=== PATIENT | female | born 1995 | race Caucasian/White ===

== ENCOUNTER → 2020-05-14 10:27 | Outpatient (BNVA) | payer BC, SELFPAY | PROVIDERS: Family Provider Family Medicine; PCP Family Medicine; Visit Provider Nurse Practitioner Family | DX: R53.83 Other fatigue (principal); R22.43 Localized swelling, mass and lump, lower limb, bilateral; T14.8XXA Other injury of unspecified body region, initial encounter | CPT/HCPCS: 80053; 84443; 85025 ==

== ENCOUNTER 2020-06-04 08:24 | Outpatient (CLI) | payer BC, SELFPAY ==
--- NOTE | 2020-06-04 08:39 | USCV_ITS ---
Melva Munoz Age: 24 Gender: F : 1995 Exam Date: 06/04/2020 08:41 Ordering Phys: Jhaaira Barrera-Avel PROPELLER INSPECTOR Technologist: Raquel Pham [place] [facility] [place]: ble pain and swelling Risk Factors: Previous Vascular Surgery: RIGHT LEFT BP: 117.0 / 66.00 BP: 109.0/ 76.00 0 0 Waveform Velocity (cm/s) Velocity (cm/s) Waveform Triphasic 162.7 Iliac Prox 167.2 Triphasic Triphasic 175.7 Iliac Mid 188.4 Triphasic Triphasic 177.6 Iliac Distal 161.2 Triphasic Triphasic 145.7 CERTIFIED SKI PATROLLER 159.6 Triphasic Triphasic 109.2 SFA Prox 114.9 Triphasic Triphasic 107.2 SFA Mid 116.4 Triphasic Triphasic SFA Dist Triphasic 89.5 86.3 Triphasic 56.4 POP 65.1 Triphasic Triphasic 45.8 OVERLOCK OPERATOR 69.2 Triphasic Biphasic 32.0 DPA 52.1 Triphasic 0.9 [id number] 1.3 FINDINGS RIGHT DP- 106 RIGHT OVERLOCK OPERATOR- 94 LEFT DPA- 124 LT OVERLOCK OPERATOR- 150 Normal resting ABIs bilaterally Normal arterial Doppler waveforms CONCLUSIONS No significant arterial obstruction, based on the above findings Dr Tony Chopra MD [facility] (Electronically Signed) Final Date: 04 June 2020 20:41 S
== END 2020-06-04 08:25 | disposition home or self-care (01) ==
PROVIDERS: Visit Provider Nurse Practitioner Family
DX: M79.604 Pain in right leg (principal); M79.605 Pain in left leg; M79.89 Other specified soft tissue disorders
CPT/HCPCS: 93925

== ENCOUNTER 2020-09-20 09:14 | Outpatient (CLI) | payer BC, SELFPAY ==
--- NOTE | 2020-09-20 09:30 | USCV_ITS ---
Melva Munoz Age: 24 Gender: F : 1995 Exam Date: 09/20/2020 09:26 Ordering Phys: Kenyon Mcdowell MD (Andy) ([email or web address]) Technologist: Sammi Churchill [place] [facility] [place]ication: HISTORY: Patient has history of varicose veins. PROCEDURES: Bilateral duplex Venous Insufficiency study of the Deep and Superficial systems was carried out according to normal protocol with the patient in supine positon for deep system and dependent position for the superficial system. FINDINGS: There is no evidence of bilateral deep vein thrombosis. No evidence of reflux was noted in the bilateral deep venous system. No evidence of superficial thrombosis in the RIGHT saphenous system. No venous reflux noted in the RIGHT greater saphenous vein. Venous reflux is demonstrated in the RIGHT small saphenous vein with a spectral Doppler display of greater than 500 mlsec at the level of the proximal and mid calf. No evidence of superficial thrombosis in the LEFT saphenous system. Venous reflux is demonstrated in the LEFT greater saphenous vein with a spectral Doppler display of greater than 500 milliseconds at the distal and below the knee levels There is a accessory vein in the left extremity coming from the SFJ that demonstrates reflux. this vein is very tortuous. Venous reflux is demonstrated in the LEFT small saphenous vein with a spectral Doppler display of greater than 500 mlsec at the level of the proximal calf. CONCLUSIONS 1.No evidence of DVT in the above-mentioned identifiable veins. 2. On the right side, significant venous reflux of greater than 500 ms (639 and 811 ms respectively )was noted at the proximal and mid small diameter and were greater than 1 cm deep from the surface. 3. On the left side, significant venous reflux of greater than 500 ms ( 2890 and 2800 msec respectively) were noted at the distal and below- knee segments of the greater saphenous vein. These venous segments were 0.78 and 0.39 cm in diameter and at a depth of more than 1 cm from the surface. 4. Accessory veins are noted with a significant insufficiency at the below-knee level on the left side Dr Tony Chopra MD [facility] (Electronically Signed) Final Date: 20 September 2020 17:09 S
== END 2020-09-20 09:15 | disposition home or self-care (01) ==
LOC: RAD 09:17
PROVIDERS: Visit Provider Thoracic Surgery (Cardiothoracic Vascular Surgery)
DX: I83.90 Asymptomatic varicose veins of unspecified lower extremity (principal)
CPT/HCPCS: 93970

== ENCOUNTER → 2021-03-19 09:25 | Outpatient (BNVA) | payer BC, SELFPAY | PROVIDERS: Visit Provider Thoracic Surgery (Cardiothoracic Vascular Surgery) | DX: Z20.822 Contact with and (suspected) exposure to COVID-19 (principal); I83.90 Asymptomatic varicose veins of unspecified lower extremity | CPT/HCPCS: 87635 ==

== ENCOUNTER → 2021-03-24 | Day surgery (SDC) | payer BC, SELFPAY ==
[2021-03-24 06:06] VITALS: BMI 33.0
[2021-03-24 06:20] VITALS: BP 103/69; PULSE 50; RESP 18; TEMP 36.7; O2SAT 100
--- NOTE | 2021-03-24 06:24 | PM.HP ---
Providers/Chief Complaint Admitting Physician: Dr. Mcdowell Primary Care Provider: Ms. Jahaira Barrera Chief Complaint: venous ablation History of Present Illness Melva Munoz is a 25 year old female whom I have seen previously upon referral from . Jahaira Barrera for bilateral lower extremity discomfort with prolonged standing, left greater than right. I initially saw her in consultation on August 29 I recommended transition from knee-high compression to thigh-high compression. Venous reflux studies have confirmed bilateral greater saphenous vein reflux. She is substantially more symptomatic on the left side than the right side. She did note improvement with compressive therapy. 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 Due to the substantial discomfort with this prolonged standing related to her work, we have offered consideration for venous ablative therapy to assist with her discomfort. She is in agreement. Given that her symptoms are greater on the left side, we initially recommended therapy on that side. Review of Systems Const: Reports: fatigue and change in sleep pattern; Denies: fever(s), chills, change in appetite, change in weight or night sweats Eyes: Denies: change in vision or blurry vision ENMT: Denies: odynophagia or hoarseness Card: Reports: swelling of feet/ankles; Denies: chest pain, palpitations, irregular heart rhythm or edema Resp: Denies: dyspnea or productive cough GI: Denies: abdominal pain, nausea, vomiting, dysphagia, heartburn or change in bowel habits : Denies: dysuria, urinary frequency, urinary urgency or urinary hesitancy Musc: Reports: extremity pain and extremity swelling Skin/Breast: Denies: rash Neuro: Denies: headache(s), numbness in extremities, weakness in extremities or sensory changes Psych: Reports: depression; Denies: anxiety or change in appetite Endo: Denies: polyuria, polydipsia or cold intolerance Yovani/Lymph: Reports: easy bruising; Denies: easy bleeding, petechiae or enlarged lymph nodes Medications/Allergies Home Medications Medication Instructions Recorded Confirmed Last Taken Type No Known Home Medications 05/14/20 01/03/21 Unknown History Allergies Allergy/AdvReac Type Severity Reaction Status Date / Time erythromycin base Allergy unsure Verified 01/03/21 10:49 steroid Allergy swelling Uncoded 01/03/21 10:49 PFSH Acute PFSH: Medical History (Updated 03/24/21 @ 06:28 by Kenyon Mcdowell MD) Chronic ITP (idiopathic thrombocytopenia) DDD (degenerative disc disease), lumbar 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 Family History Mother Diabetes Hypothyroidism Social History Smoking and tobacco status: never smoked Alcohol intake: current Alcohol intake frequency: holidays/special occasions only Household members: significant other Housing: House Marital status: Single Number of children: 0 Female Reproductive History: Date of last menstrual period: 05/01/20 Para: 0 Spontaneous abortions: No Physical Exam Const: COMMON NORMALS: patient oriented x3 and alert ORIENTATION/CONSCIOUSNESS: Yes oriented to person, Yes oriented to place and Yes oriented to time HENMT: COMMON NORMALS: normocephalic HEAD & SCALP: normocephalic and cranial bruits Neck/C-Spine: COMMON NORMALS: full ROM, supple, no JVD and No carotid bruits GENERAL: Yes trachea midline CERVICAL SPINE: Yes cervical ROM normal Chest: COMMONS NORMALS: normal inspection of the chest and normal palpation of entire chest wall Resp: COMMON NORMALS: normal respiratory effort, No use of accessory muscles, clear to auscultation bilaterally and percussion normal EFFORT & INSPECTION: Yes able to speak in complete sentences and Yes symmetric chest movement AUSCULTATION: clear to auscultation bilaterally PERCUSSION: percussion normal Cardio: COMMON NORMALS: no JVD, regular rate, regular rhythm, S1 normal heart sound present, S2 normal heart sound present, No gallops present (Cardio), No murmurs present (Cardio), No rub (Cardio) and Peripheral pulses 2+ throughout JUGULAR VENOUS DISTENTION: no JVD RATE: regular rate RHYTHM: regular rhythm HEART SOUNDS: S1 normal heart sound present and S2 normal heart sound present PERIPHERAL PULSES: Peripheral pulses 2+ throughout Extremity: COMMON NORMALS: capillary refill normal GENERAL: No calf tenderness, No cyanosis, Yes edema and No palpable cord OTHER: Negative Homans' sign Neuro: COMMON NORMALS: patient oriented x3, no focal motor deficits and no sensory deficits noted SENSORIUM/ORIENTATION: Yes alert, Yes oriented to person, Yes oriented to place and Yes oriented to time GAIT: Yes Normal gait present A&P Assessment and plan (1) 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 Symptom improvement with compressive therapy. We have recommended consideration for staged RF catheter ablation of the greater saphenous vein, initially beginning on the left side. Rationale for this was carefully discussed with Magdalene Tammy. Potential for DVT or failure of improvement was very frankly discussed. She stated understanding. Potential for infection, continued leg swelling, increased pain, and need for further procedures were also frankly discussed. Potential need for lifelong compressive therapy for further relief of symptoms was also reviewed. Appropriate consents have been reviewed and signed for planned RF catheter ablation of the left greater saphenous vein. Status: Acute Attestations Medical Necessity Statement*: Bilateral lower extremity edema and pain with prolonged standing with documented bilateral lower extremity venous reflux of the greater saphenous veins. More symptomatic on the left than right. 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
[2021-03-24] MEDS: diazePAM 5 mg Tablet 10 MG PO (06:28)
[2021-03-24 07:30] VITALS: BP 115/69; PULSE 53; RESP 20; O2SAT 100
--- NOTE | 2021-03-24 07:31 | PC.NURSE ---
Dr. Kapoor ordered to stop procedure and reschedule due to difficult access and vasospasm. Patient to be rescheduled at later date and time. V/s stable, boat driver available . Patient updated on plan and verbalized understanding.
--- NOTE | 2021-03-24 07:44 | PM.OP ---
Operative Report Date of procedure: March 24, 2021 Pre-op Diagnosis: Bilateral lower extremity venous reflux with symptomatic edema and pain Post-op diagnosis: same Procedure Done: Planned RF catheter ablation of left greater saphenous vein: Aborted secondary to anatomy Pathology: none sent Anesthesia: Local Findings: Ultrasound examination revealed vein spasm with engaged but a introducer needle which was not relieved with time or reverse Trendelenburg position. Condition: stable Disposition: same day Brief History: Ms. Munoz is a 25-year-old female who has bilateral lower extremity venous reflux and symptomatic lower extremity edema and discomfort with prolonged standing. 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 She is on some modest improvement with thigh-high compressive therapy. Given her symptoms and documented greater saphenous vein reflux, RF catheter ablation was recommended in an attempt to improve her symptomatology. Details the risk of the procedure were carefully and frankly discussed. Proper consents were reviewed and signed. Procedure: Ms. Munoz underwent preop repeat ultrasound examination of her left lower extremity confirming her anatomy. It was noted however that below the knee segment was felt to be too small for ablative therapy as well as quite superficial. We also note there several accessory veins entering the saphenous system at the knee level. Entire left lower extremity was sterilely prepped and draped. 1% lidocaine was infiltrated at a point just proximal to the knee crease medially. Saphenous vein was engaged under ultrasound guidance at this level where there was immediate severe spasm that would not allow for passage of our guidewire. Repeat inspection of the saphenous system proximally revealed substantial detriment in vein caliber consistent with spasm throughout. The vein is quite deep in the mid thigh and I did not feel I would be successful with engaging it at its current caliber and depth. We waited several minutes and placed her in extreme reverse Trendelenburg, though unfortunately, the saphenous vein never returned to its preengagement caliber. At this point, I do not feel we would be successful with engagement, and if so, given the current vein caliber, I did not feel we be able to successfully pass an RF catheter. Therefore, I elected to abort the procedure at this time. We will have her return in approximately 1 week after hydration to allow for reexamination by our current physician relations representative to determine whether the caliber at that time would warrant consideration for repeat attempt at RF catheter ablation. This was carefully discussed with Ms. Munoz, and she stated understanding. In the interim, recommend she continue to wear thigh-high compressive garments for symptomatic relief.
== END ==
PROVIDERS: Visit Provider Thoracic Surgery (Cardiothoracic Vascular Surgery)
DX: I83.899 Varicose veins of unspecified lower extremity with other complications (principal)
CPT/HCPCS: J7040; J7050

== ENCOUNTER 2021-03-31 16:00 | Outpatient (CLI) | payer BC, SELFPAY ==
--- NOTE | 2021-03-31 | USCV_ITS ---
Melva Munoz Age: 25 Gender: F : 1995 Exam Date: 03/31/2021 16:22 Ordering Phys: Kenyon Mcdowell MD (Andy) ([email or web address]) Technologist: Exam Location: [facility] – [place] Indication: RECHECK LT GSAPH VEIN AFTER PREVIOUS FAILED ATTEMPT PROCEDURES: LIMITED VEIWS OF THE DEEP AND GASPH VEIN ON LT AFTER FAILED ABLATION ATEMPT FINDINGS: THE DISTAL GREAT SAPH ABOVE THE KNEE ON LT WOULD BE A GOOD ACCCESS SITE, BELOW THE KNEE THE VEIN IS DEEP AND SMALL ON THE LT LEG CONCLUSIONS 1. No significant venous reflux in the deep veins in the left side 2. Significant venous reflux of greater than 500 ms were noted at the saphenofemoral junction, distal greater saphenous vein segment and the below-knee greater saphenous vein segment. The below-knee segment of the greater saphenous vein appears to be deep with superficial tributaries and communicators. The below- knee vein was found to be 0.34 cm in diameter 3. No DVT noted Dr Tony Chopra MD [facility] (Electronically Signed) Final Date: 02 April 2021 09:32 S
== END 2021-03-31 16:01 | disposition home or self-care (01) ==
LOC: RAD 16:02
PROVIDERS: Visit Provider Thoracic Surgery (Cardiothoracic Vascular Surgery)
DX: I83.90 Asymptomatic varicose veins of unspecified lower extremity (principal); I87.2 Venous insufficiency (chronic) (peripheral)
CPT/HCPCS: 93971

== ENCOUNTER 2022-08-25 08:58 | Outpatient (CLI) | payer BC, SELFPAY ==
--- NOTE | 2022-08-25 09:30 | USCV_ITS ---
Melva Munoz Age: 26 Gender: F : 1995 Exam Date: 08/25/2022 09:20 Ordering Phys: Kenyon Mcdowell MD (Andy) ([email or web address] [place]) Technologist: Monty Smith [place] [facility] [place] HISTORY: PROCEDURES: FINDINGS: No DVT or SVT noted in either bilateral lower extremity. There is no reflux noted in the right lower extremity. There is venous reflux noted in the LEFT SFJ, GSV-DIST, and the GSV below knee. All other veins examined appear free of reflux at this time. The veins were found to be easily compressible with spontaneous blood flow. Non pulsatile flow pattern. Significant venous reflux of greater than 500 ms. Noted at the saphenofemoral junction, proximal, mid, distal and below-knee segments of the greater saphenous vein on the left side. The reflux time was measuring anywhere from 694ms to 3570 ms. The venous segments was measuring away from 0.32 to 0.56 cm in diameter. All these venous segments where greater than 1 cm deep from the surface. No significant reflux in the small saphenous veins on the left side CONCLUSIONS 1. No evidence of DVT in the above-mentioned identifiable veins. 2. Significant venous reflux of greater than 500 ms were noted at the left saphenofemoral junction, proximal, mid, distal and below-knee segments of the great saphenous vein on the left side. These venous segments were greater than 1 cm deep from the surface. 3. No significant venous reflux in the right side Dr Tony Chopra MD [facility] (Electronically Signed) Final Date: 26 August 2022 18:50 S
== END 2022-08-25 08:59 | disposition home or self-care (01) ==
LOC: RAD 09:01
PROVIDERS: Visit Provider Thoracic Surgery (Cardiothoracic Vascular Surgery)
DX: I83.90 Asymptomatic varicose veins of unspecified lower extremity (principal); I87.2 Venous insufficiency (chronic) (peripheral)
CPT/HCPCS: 93970

== ENCOUNTER 2022-10-13 05:45 | Day surgery (SDC) | payer BC, SELFPAY ==
[2022-10-12 15:51] VITALS: BMI 33.0
[2022-10-13 06:13] VITALS: BP 129/72; PULSE 65; RESP 18; TEMP 37.2; O2SAT 99
[2022-10-13 06:17] LABS: OR HCG Qualitative Urine Negative (Negative)
[2022-10-13] MEDS: diazePAM 5 mg Tablet PO (06:57)
--- NOTE | 2022-10-13 06:58 | PM.OPSURHP ---
Providers/Chief Complaint Admitting Physician: Dr. Mcdowell Chief Complaint: 45869 I83.90 Venous reflux left greater saphenous vein History of Present Illness Melva Munoz is a 26 year old female with known left greater saphenous vein venous reflux. We attempted RF catheter ablation March 24, 2021 the right successful due to vessel spasm. She has been utilizing compression therapy at that time with reasonably good results. We felt at the time of her original procedure that she probably was not appropriately hydrated. She represented back to us in July wishing to be reconsidered for intervention. We therefore completed a new venous duplex study this year which again confirmed substantial reflux in the left greater saphenous system. There were no substantial reflux segments on the right side. She has been undergoing hydration orally for the past week and is avoided all caffeine products. She now represents for attempt at catheter ablation of the left greater saphenous vein to improve symptoms. CEAP classification C3 Review of Systems Const: Denies: fever(s), chills, change in appetite, change in weight, fatigue or night sweats Eyes: Denies: change in vision or blurry vision ENMT: Denies: odynophagia or hoarseness Card: Denies: chest pain, palpitations, irregular heart rhythm or edema Resp: Denies: dyspnea or productive cough GI: Denies: abdominal pain, nausea, vomiting, dysphagia, heartburn or change in bowel habits : Denies: dysuria, urinary frequency, urinary urgency or urinary hesitancy Musc: Reports: extremity pain (With prolonged standing) and extremity swelling (With prolonged standing) Skin/Breast: Denies: rash Neuro: Denies: headache(s), numbness in extremities, weakness in extremities or sensory changes Psych: Denies: anxiety, depression or change in appetite Endo: Denies: polyuria, polydipsia or cold intolerance Yovani/Lymph: Denies: easy bruising, easy bleeding, petechiae or enlarged lymph nodes Medications/Allergies Home Medications Medication Instructions Recorded Confirmed Last Taken Type No Known Home Medications 05/14/20 10/12/22 Unknown History Allergies Allergy/AdvReac Type Severity Reaction Status Date / Time erythromycin base Allergy unsure Verified 10/13/22 06:58 steroid Allergy swelling Uncoded 10/13/22 06:58 PFSH PFSH: Medical History Chronic ITP (idiopathic thrombocytopenia) DDD (degenerative disc disease), lumbar 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 Family History Mother Diabetes Hypothyroidism Social History Alcohol intake: current Alcohol intake frequency: holidays/special occasions only Substance/Drug Use: never Household members: significant other Housing: House Marital status: Single Number of children: 0 Female Reproductive History: Date of last menstrual period: 10/12/22 Para: 0 Spontaneous abortions: No Dietary Habits: Caffeine: Yes Vital Signs Vitals Signs: Last Vital Signs Temp 99.0 F 10/13/22 06:13 Pulse 65 10/13/22 06:13 Resp 18 10/13/22 06:13 BP 129/72 10/13/22 06:13 Pulse Ox 99 10/13/22 06:13 O2 Del Method Room Air 10/13/22 06:13 Weight: Weight last 48 hrs Weight 217 lb Weight 217 lb Physical Exam HENMT: COMMON NORMALS: normocephalic, atraumatic, hearing grossly normal bilaterally and external ears normal Neck/C-Spine: COMMON NORMALS: full ROM and no lymphadenopathy Resp: COMMON NORMALS: normal respiratory effort and clear to auscultation bilaterally Cardio: COMMON NORMALS: regular rate, regular rhythm, S1 normal heart sound present and No murmurs present (Cardio) Extremity: NARRATIVE EXTREMITY EXAM: Trace to 1+ pretibial edema on the left. No ulcerations or prominent varicosities when supine. Neuro: COMMON NORMALS: moves all extremities, no focal motor deficits and no sensory deficits noted A&P Assessment and plan (1) Saphenofemoral venous reflux: Venous reflux left greater saphenous vein system Plan: We will plan to proceed with attempt at RF catheter ablation of left greater saphenous vein. Details and risk of the procedure were carefully and frankly discussed. Appropriate consents have been reviewed and signed. She is aware of the potential, again, for failure to be able to complete the procedure. She is also aware of continued need for compression post procedure and of failure to improve symptoms. She wishes to proceed. Risk of infection, bleeding, hematoma, and postoperative pain were also discussed. Coding Level of Care Code Acute Code for g Fwd Diagnoses Saphenofemoral venous reflux I87.2
[2022-10-13 08:05] VITALS: BP 128/86; PULSE 82; RESP 17; TEMP 36.6; O2SAT 100
[2022-10-13] MEDS: lidocaine 2% INJ 20 mL 10 ML INJECTION (08:12)
--- NOTE | 2022-10-13 08:46 | SUR.OPER ---
0846 PT TAKEN TO PRE OP PER RUDI SEXTON, NO COMPLAINTS, REPORT GIVEN TO BONITA KILGORE.
[2022-10-13 08:47] VITALS: BP 134/68; PULSE 74; RESP 18; TEMP 36.7; O2SAT 96
--- NOTE | 2022-10-13 08:58 | P.OP_ITS ---
Operative Report Date of procedure: October 13, 2022 Pre-op diagnosis: Preop Diagnosis Bilateral lower extremity venous reflux with symptomatic edema and pain Post-op diagnosis: same Procedure done: Radiofrequency catheter ablation of the left greater saphenous vein Implants: None Specimens removed/disposition: None Pathology: none sent Surgeon: Kenyon Mcdowell Anesthesia: Local Estimated blood loss (mL): 5 Complications: None Condition: stable Disposition: same day Brief History: Ms. Case is a 26-year-old female with isolated substantial reflux of the left greater saphenous vein system. We previously attempted RF catheter ablation back in 2020 but were unsuccessful secondary to severe vein spasm. She was treated with compression and represented recently with desire to attempt ablation again. She has undergone duplex reexamination again confirming severe reflux on the left side and not on the right greater saphenous vein system. She underwent substantial hydration orally over the past week and avoided all caffeine products and then represents for attempt at ablation again. Details of risk the procedure were again carefully discussed including the potential for inability to complete the procedure. Proper consents have been reviewed and signed. Procedure: The insufficient left greater saphenous vein was verified by ultrasound and diagrammed on the overlying skin. The varicose tributary veins and suitable access sites were identified and mapped. The affected left lower extremity was prepped and draped in the usual sterile fashion. Ms. Munoz was placed in reverse Trendelenburg position. Tumescent was instilled in the skin overlying the access site for local anesthesia. The vein was accesse in the proximal left calf using ultrasound guidance and the Anupama bassem technique, a guidewire was introduced through the needle, which was then exchanged over the guidewire for a 7F sheath. The RF catheter was placed on the sterile field, flushed and wiped down, prepared, and connected by a sterile cable. The patient was placed in Trendelenburg position. After RF catheter position was verified by ultrasound, tumescent anesthesia was infiltrated, under ultrasound guidance, precisely into the perivenous compartment along the entire length of vein. After the RF catheter position was again confirmed with ultrasound imaging, and under direct external compression along the length of the heating element, RF energy was applied. The vein was segmentally ablated until the treatment length is completed. Device temperature was maintained at 120 +/- degrees C with an initial power level of 40W dropping to below 20W for each treatment. Total vein length treated 36 cm. Vein diameter 1.5 cm. Total cycles of RF 14. Time 4 minutes and 25 seconds. Repeat ultrasound of the left greater saphenous vein was performed, confirming successful treatment. Saphenofemoral junction was inspected and was noted to be patent along with a patent epigastric vessel. The catheter and sheath were withdrawn and hemostasis established with direct pressure. After assuring hemostasis, the skin incision over the saphenous vein was closed with a bandage and graduated compression stocking was applied from the level of the foot to the most proximal length of the thigh.
== END 2022-10-13 09:00 | disposition home or self-care (01) ==
PROVIDERS: Visit Provider Thoracic Surgery (Cardiothoracic Vascular Surgery)
DX: I83.892 Varicose veins of left lower extremity with other complications (principal); I87.2 Venous insufficiency (chronic) (peripheral)
CPT/HCPCS: 36475; 81025; 84703; C1887

== ENCOUNTER 2022-10-20 06:04 | Outpatient (CLI) | payer BC, SELFPAY ==
--- NOTE | 2022-10-20 06:15 | USCV_ITS ---
Melva Munoz Age: 26 Gender: F : 1995 Exam Date: 10/20/2022 06:17 Ordering Phys: Kenyon Mcdowell MD (Andy) ([email or web address] [place] Technologist: CT Exam [place]: [facility] [place]: post ablation left PROCEDURES: Venous duplex imaging was performed in only the left lower extremity. In addition, the posterior tibial and peroneal trunk were evaluated. On the left side, the common femoral, superficial femoral, profunda femoral, popliteal, posterior tibial, greater saphenous veins, and the peroneal trunk were identified and interrogated in the standard fashion. FINDINGS: There is no dvt, the venous ablation area in gsv is occluded up to the prx mid thigh area CONCLUSIONS No evidence of left lower extremity DVT. GSV ablation with occlusion to proximal mid thigh Ramses Smallwood MD (Electronically Signed) Final Date: 20 Oct 2022 09:32 S
== END 2022-10-20 06:05 | disposition home or self-care (01) ==
LOC: RAD 06:06
PROVIDERS: Visit Provider Thoracic Surgery (Cardiothoracic Vascular Surgery)
DX: I83.90 Asymptomatic varicose veins of unspecified lower extremity (principal)
CPT/HCPCS: 93971

== ENCOUNTER → 2022-10-21 09:59 | Outpatient (BNVA) | payer BC, SELFPAY | PROVIDERS: PCP Nurse Practitioner Family; Visit Provider Nurse Practitioner Family | DX: R53.83 Other fatigue (principal); D69.3 Immune thrombocytopenic purpura; E07.9 Disorder of thyroid, unspecified | CPT/HCPCS: 80053; 84439; 84443; 84481; 85025 ==